=== PATIENT | male | born 1940 | race Caucasian/White ===

== ENCOUNTER 2022-02-17 06:51 | Day surgery (SDC) | payer OTHER ==
[2022-02-16 10:23] VITALS: BMI 33.7
[2022-02-17 07:37] VITALS: RESP 18
[2022-02-17] MEDS ORDERED: BUPIVACAINE HCL/PF 2.5 MG/ML - 30 ML VIAL IJ ONE (08:56)
[2022-02-17] MEDS ORDERED: BUPIVACAINE HCL/PF 0.25% (2.5MG/ML) 10 ML VIAL IJ ONE ×2 (09:16→09:45)
[2022-02-17] MEDS ORDERED: PROPOFOL 20 ML ONE (09:26)
[2022-02-17 10:51] VITALS: TEMP 97.4
[2022-02-17 11:34] VITALS: BP 146/60; PULSE 74
== END 2022-02-17 12:02 | disposition home or self-care (01) ==
LOC: FASU 06:51
PROVIDERS: ATTEND Orthopaedic Surgery
PROC: 0SBD4ZZ Excision of Left Knee Joint, Percutaneous Endoscopic Approach (ICD-10-PCS; 2022-02-17)
PROC: 0SBD4ZZ Excision of Left Knee Joint, Percutaneous Endoscopic Approach (ICD-10-PCS; principal; 2022-02-17 09:27)
DX: S83.242A Other tear of medial meniscus, current injury, left knee, initial encounter (principal); S83.282A Other tear of lateral meniscus, current injury, left knee, initial encounter; S83.8X2A Sprain of other specified parts of left knee, initial encounter; M65.862 Other synovitis and tenosynovitis, left lower leg; X58.XXXA Exposure to other specified factors, initial encounter; Y93.9 Activity, unspecified; Y92.9 Unspecified place or not applicable
CPT/HCPCS: 94760